=== PATIENT | male | born 1955 ===

== ENCOUNTER → 2019-01-15 19:26 | Outpatient (REF) | payer MEDICARE, OTHER, SELFPAY ==
[2019-01-15 20:09] LABS: Cholesterol 189 mg/dL (140-199); HDL Cholesterol 70 mg/dL (40-60); LDL Cholesterol Calculated 104 mg/dL (<100); Triglycerides 75 mg/dL (35-150)
== END ==
LOC: LAB 19:26
PROVIDERS: Visit Provider Family Medicine
DX: E78.5 Hyperlipidemia, unspecified (principal); E29.1 Testicular hypofunction
CPT/HCPCS: 36415; 80061; 84403